=== PATIENT | male | born 1965 | race Caucasian/White ===

== ENCOUNTER → 2020-02-24 15:55 | Outpatient (CLI) | payer OTHER, SELFPAY ==
[2014-09-02 09:10] VITALS: BMI 32.3
--- NOTE | 2020-02-24 | CYSPIN_PTH ---
PATIENT: REMIGIO LOPEZ Jr. LOC: [facility] U#:[id number] AGE/SX: 60/M ROOM: RE02/24/[address]: Dr. Juan Jesus MD : 1965 BED: DIS: SPEC #: [id number] RECD: 02/25/20 08:34 STATUS: MILI CASA #: [id number] MARIS: 02/24/20 00:[address]: Juan Jesus DEPT: CYTOLOGY RECD BY: Michel Bravo ENTERED: 02/25/20 08:34 SP TYPE: CYSPIN FL OTHR DR: Dr. Osmin Vanegas MD Tissues: Urine Procedures: Pap Stain (control) Special Stain Group II Cytospin Fluid HEADER OPERATION: Not noted PRE-OP DIAGNOSIS: Malignant neoplasm of lateral wall of bladder TISSUE SUBMITTED: Urine for cytology DIAGNOSIS CYTOLOGY Urine for cytology (cytospin): Rare atypical degenerating urothelial cell. Crystalline debris. AM:margaret 02/28/20 COMMENT Case has been reviewed in consultation with Dr. Arauz who concurs with the above diagnosis. IDC:[facility] CYTOLOGY STUDY Slides are reviewed. CYTOLOGY GROSS Received is 80 ml of dark orange, cloudy fluid labeled with the patient's name and and designated per the requisition as urine. Submitted for cytology preparation. / margaret 02/25/20 TC:? CPT: 69619
[2020-02-24 16:06] LABS: Cytology, Body Fluid / CSF SEE PATHOLOGY REPORT
== END ==
PROVIDERS: PCP Family Medicine; Referring Provider Urology; Visit Provider Urology
DX: C67.2 Malignant neoplasm of lateral wall of bladder (principal)
CPT/HCPCS: 88108; 88313

== ENCOUNTER → 2023-06-03 | Outpatient (CLI) | payer OTHER, SELFPAY | END | disposition home or self-care (01) | LOC: LAB 09:58 | PROVIDERS: PCP Family Medicine; Referring Provider Nurse Practitioner; Visit Provider Nurse Practitioner | DX: R97.20 Elevated prostate specific antigen [PSA] (principal) | CPT/HCPCS: 36415; 84153 ==

== ENCOUNTER → 2023-07-07 | Outpatient (CLI) | payer OTHER, SELFPAY ==
[2023-07-08 14:09] LABS: PSA, Free 0.29 ng/mL; PSA, Free % 6.4 % (.)
== END | disposition home or self-care (01) ==
LOC: LAB 09:13
PROVIDERS: PCP Family Medicine; Referring Provider Urology; Visit Provider Urology
DX: R97.20 Elevated prostate specific antigen [PSA] (principal)
CPT/HCPCS: 36415; 84153; 84154

== ENCOUNTER → 2023-12-11 | Outpatient (CLI) | payer OTHER, SELFPAY ==
[2023-12-11 10:32] LABS: PSA,Total- Diagnostic 2.35 ng/mL (0.0-4.0)
== END | disposition home or self-care (01) ==
LOC: LAB 09:33
PROVIDERS: PCP Family Medicine; Referring Provider Nurse Practitioner; Visit Provider Nurse Practitioner
DX: R97.20 Elevated prostate specific antigen [PSA] (principal)
CPT/HCPCS: 36415; 84153

== ENCOUNTER → 2025-06-16 | Outpatient (CLI) | payer OTHER, SELFPAY ==
[2025-06-16 18:14] LABS: PSA,Total- Diagnostic 1.22 ng/mL (0.00-4.00)
== END | disposition home or self-care (01) ==
LOC: LAB 15:55
PROVIDERS: PCP Family Medicine; Referring Provider Urology; Visit Provider Urology
DX: R97.20 Elevated prostate specific antigen [PSA] (principal)
CPT/HCPCS: 36415; 84153